=== PATIENT | female | born 1990 | race African-American/Black ===

== ENCOUNTER 2020-12-09 17:01 | Outpatient (CLI) | payer OTHER, SELFPAY ==
--- NOTE | ~2020-12-09 | US_ITS ---
EXAMINATION: US OB <=14 wk fetus w TV DATE: 12/09/2020 17:41 INDICATION: Spotting and cramping during first trimester TECHNIQUE: Real-time pelvic transabdominal and transvaginal ultrasound was performed. COMPARISON: None. FINDINGS: The uterus measures 8.7 x 3.4 x 5.3 cm. The endometrial complex measures 12 mm. No intraute rine gestational sac is identified. The right ovary measures 2.2 x 1.7 x 1.6 cm. The left ovary measu res 3.0 x 2.2 x 1.9 cm. There is normal vascular flow in the ovaries. There is no free fluid in the p stefan. IMPRESSION: 1. of unknown location. Although no intrauterine gestational sac is seen, this may be due t o early gestation. If the patient is clinically stable, recommend followup with serial beta-hCG and u ltrasound. Reviewed, dictated and finalized at location A. IMPRESSION: 1. of unknown location. Although no intrauterine gestational sac is s een, this may be due to early gestation. If the patient is clinically stable, r ecommend followup with serial beta-hCG and ultrasound.
== END 2020-12-09 17:02 | disposition home or self-care (01) ==
LOC: ANHIMG 17:04
PROVIDERS: PCP Obstetrics & Gynecology; Visit Provider Obstetrics & Gynecology
DX: O26.851 Spotting complicating pregnancy, first trimester (principal); Z3A.00 Weeks of gestation of pregnancy not specified
CPT/HCPCS: 76801; 76817

== ENCOUNTER 2021-03-31 14:49 | Outpatient (CLI) | payer OTHER, SELFPAY ==
--- NOTE | ~2021-03-31 | US_ITS ---
EXAMINATION: US OB <=14 wk fetus w TV DATE: 03/31/2021 15:22 INDICATION: Uncertain dates. TECHNIQUE: Real-time transabdominal and transvaginal pelvic ultrasound was performed. COMPARISON: None. FINDINGS: TRANSABDOMINAL ULTRASOUND: The uterus measures 9.1 x 3.4 x 4.9 cm. TRANSVAGINAL ULTRASOUND: There is an intrauterine gestational sac. A yolk sac is identified. The fet al crown rump length measures 4 mm, which correlates with an estimated gestational age of 6 weeks and 0 day(s) (+/-) 4 day(s). heart motion is identified measuring 117 beats per minute (bpm) by M- mode Doppler. The right ovary measures 3.7 x 1.4 x 1.2 cm. The left ovary measures 3.4 x 2.1 x 1.9 cm . There is no free fluid in the pelvis. IMPRESSION: 1. Single living intrauterine gestation with estimated date of delivery of 11/24/2021. Reviewed, dictated and finalized at location A. 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
== END 2021-03-31 14:50 | disposition home or self-care (01) ==
LOC: ANHIMG 14:53
PROVIDERS: PCP Family Medicine; Visit Provider Student in an Organized Health Care Education/Training Program
DX: Z34.90 Encounter for supervision of normal pregnancy, unspecified, unspecified trimester (principal); Z3A.00 Weeks of gestation of pregnancy not specified
CPT/HCPCS: 76801; 76817

== ENCOUNTER 2021-10-28 13:05 | Inpatient (IN) | payer OTHER, SELFPAY ==
[2021-10-28] VITALS (14 sets, daily range): BP systolic 83–133; BP diastolic 53–88; PULSE 74–96; TEMP 37.1; BMI 33.2
--- NOTE | ~2021-10-28 | US_ITS ---
EXAMINATION: US OB limited w BPP DATE: 10/28/2021 11:16 INDICATION: Late decelerations during third trimester TECHNIQUE: Real-time pelvic ultrasound was performed. The interpreting radiologist was not present fo r the study. COMPARISON: None. FINDINGS: There is a single living fetus in vertex presentation. The placenta is anterior. heart rate is 144 beats per minute (bpm). The amniotic fluid index is 15.4 cm which is normal (normal range: 7.7 cm to 24.9 cm). Biophysical profile performed by the technologist: breathing (30 sec sustained breathing in 30 minutes): 2 out of 2 movement (3 gross body movements in 30 minutes): 2 out of 2 tone (one episode of vpbibri-tropupuqt-pwcybda limb movement): 2 out of 2 Amniotic fluid pocket (2 cm): 2 out of 2 Total score: 8 out of 8 IMPRESSION: 1. Single living fetus in vertex presentation. 2. Biophysical profile 8 out of 8. 3. Normal amniotic fluid index. Reviewed, dictated and finalized at location B.
--- NOTE | 2021-10-28 10:30 | PC.NURSE ---
1020-Called Dr. Owusu. 1030- Dr. Owusu returned call. Informed of late deceleration, almost prolonged, noted on tracing. Orders received.
--- NOTE | 2021-10-28 11:00 | PC.NURSE ---
See OBIX for charting after 1051.
--- NOTE | 2021-10-28 11:44 | PC.NURSE ---
1130- Called Dr. Owusu. 1144- Dr. Owusu returned call. Informed of ultrasound report. Will come discuss plan of care with pt.
--- NOTE | 2021-10-28 13:05 | PC.NURSE ---
Dr. Owusu at bedside. Tracing reviewed. Discussed plan of care with pt. Orders received for induction of labor.
--- NOTE | 2021-10-28 17:03 | PC.NURSE ---
Pt moved to room 108 for induction of labor.
[2021-10-28 18:18] LABS: Basophils Absolute Auto 0.1 K/mm3 (0.0-0.1); Basophils Percent Auto 0.4 % (0.2-1.2); Eosinophils Absolute Auto 0.2 K/mm3 (0-0.3); Eosinophils Percent Auto 1.3 % (0-4.4); Hematocrit 34.4 % (37.0-47.0); Hemoglobin 11.3 g/dL (12.0-15.0); Immature Granulocyte Absolute 0.07 K/mm3 (0.00-0.031); Immature Granulocyte Percent A 0.6 % (0-0.5); Lymphocytes Absolute Auto 1.88 K/mm3 (0.9-3.2); Lymphocytes Percent Auto 16.6 % (18.3-44.2); Mean Corpuscular HGB Conc 32.8 g/dl (32-36); Mean Corpuscular Hemoglobin 25.2 pg (26-34); Mean Corpuscular Volume 76.8 fl (80-100); Mean Platelet Volume 9.6 fl (7.4-10.4); Monocytes Absolute Auto 0.7 K/mm3 (0.1-0.6); Monocytes Percent Auto 6.2 % (2.6-8.5); Neutrophils Absolute Auto 8.5 K/mm3 (1.3-6.7); Neutrophils Percent Auto 74.9 % (45.5-73.1); Platelet Count Result 216 k/mm3 (150-375); Red Blood Count 4.48 M/mm3 (4.2-5.4); Red Cell Distribution Width 14.6 % (11.5-14.5); White Blood Count 11.3 K/mm3 (4.5-10.0)
--- NOTE | 2021-10-28 18:43 | WPDANESEPP ---
Anes - Eval Pre Procedure Procedure: labor epidural Date/Time: 10/28/21 18:43 Surgeon: kobe Preop Diagnosis: pain during labor Pre Op Diagnosis: induction of labor Patient Data Age: 31 Gender: F Height: Weight: Last Vital Signs Pulse 81 10/28/21 18:30 BP 118/71 10/28/21 18:30 Allergies Allergy/AdvReac Type Severity Reaction Status Date / Time No Known Allergies Allergy Verified 10/28/21 08:32 Home Medications Medication Instructions Recorded Confirmed Type prenat.vits,reed,uoq-ffxy-pparz 1 tablet PO DAILY 03/31/21 10/28/21 History Laboratory Tests 10/28/21 10/28/21 10/28/21 17:56 17:56 17:56 WBC 11.3 K/mm3 H K/mm3 (4.5-10.0) RBC 4.48 M/mm3 M/mm3 (4.2-5.4) Hgb 11.3 g/dL L g/dL (12.0-15.0) Hct 34.4 % L % (37.0-47.0) MCV 76.8 fl L fl (80-100) MCH 25.2 pg L pg (26-34) MCHC 32.8 g/dl g/dl (32-36) RDW 14.6 % H % (11.5-14.5) Plt Count 216 k/mm3 k/mm3 (150-375) MPV 9.6 fl fl (7.4-10.4) Immature Gran % (Auto) 0.6 % H % (0-0.5) Neut % (Auto) 74.9 % H % (45.5-73.1) Lymph % (Auto) 16.6 % L % (18.3-44.2) [place] % (Auto) 6.2 % % (2.6-8.5) Eos % (Auto) 1.3 % % (0-4.4) Baso % (Auto) 0.4 % % (0.2-1.2) Lymph # (Auto) 1.88 K/mm3 K/mm3 (0.9-3.2) [place] # (Auto) 0.7 K/mm3 H K/mm3 (0.1-0.6) Eos # (Auto) 0.2 K/mm3 K/mm3 (0-0.3) Baso # (Auto) 0.1 K/mm3 K/mm3 (0.0-0.1) Abs Immat Gran (auto) 0.07 K/mm3 H K/mm3 (0.00-0.031) Absolute Neuts (auto) 8.5 K/mm3 H K/mm3 (1.3-6.7) Absolute Nucleated RBC 0.0 K/mm3 K/mm3 (0.0-0.012) Nucleated RBC % 0.0 % % (0.0-0.2) RPR Pending HIV 1&2 Ab/P24 Ag 4thGn Pending Patient hx anesthesia problems: none Family hx anesthesia problems: none Results Review: All pre-operative results and documents have been reviewed as part of the pre-operative evaluation. [facility] Past Medical History Medical History History of vaginal delivery x 1 Spontaneous miscarriage x1 Surgical History Surgical History History of surgery on wrist History of surgical removal of meniscus of knee Family History Family History Father Cerebrovascular accident Hypertension Social History Social History Smoking status: Never smoker Alcohol intake: never Substance use: never Spiritual care concerns: No Exam Day of Procedure 10/28/21 18:43
[2021-10-28] MEDS: DINOPROSTONE 10 MG VAG INSERT VAGINAL (19:04)
[2021-10-28 19:09] LABS: HIV 1/2 Ab P24 Ag Result Negative (Negative)
[2021-10-28] MEDS: BETAMETHASONE SOD PHOS/ACETATE 30 MG/5 ML VIAL 12 MG IM (19:38)
--- NOTE | 2021-10-28 19:42 | PM.IMHP ---
H&P: HPI History of Present Illness Date/Time: 10/28/21 19:42 Chief Complaint: Nonreassuring tracing. Narrative: Patient is a at 36 3/7 weeks by LMP She presented for routine OB visit today and audible deceleration heard. She was sent to L and D for monitorinf. Tracing significant for isolated decelerations, isolated late deceleration and intermittent variables. She had normal JOANN and BPP. Due to the persistance of the decelerations with extended monitoring she was recommended for medical induction of labor due to concerning tracing. She was informed of risk of prematurity and risk of continuing . Discussed risk of induction of labor to include intolerance of labor, risk of delivery. Her questions answered. She to medical induction of labor. course has been uncomplicated. Labs reviewed. GBS performed today, therefore will give GBS prophylaxis for unknown GBS status. Discussed risk of induction of labor to include intolerance of labor, risk of delivery. Her questions answered. Review of Systems Review of Systems: All systems reviewed & are unremarkable except as noted in HPI and below Constitutional: Constitutional: Reports no additional constitutional complaints and Denies headache(s) Eyes: Eyes: Denies spots in vision ENT: Reports system reviewed and no additional complaints, except as documented and Denies headache(s) Cardiovascular: Cardiovascular: Denies chest pain and Denies dyspnea Respiratory: Respiratory: Denies dyspnea Gastrointestinal: Gastrointestinal: Reports no additional gastrointestinal complaints Genitourinary: Genitourinary: Reports amenorrhea Musculoskeletal: Musculoskeletal: Reports no additional musculoskeletal complaints Integumentary/Breasts: Skin/Breast: Denies breast mass and Denies rash Neurologic: Denies headache(s) Psychiatric: Psychiatric: Reports no additional psychiatric complaints [facility] Past Medical History Medical History History of vaginal delivery x 1 Spontaneous miscarriage x1 Surgical History Surgical History History of surgery on wrist History of surgical removal of meniscus of knee Family History Family History Father Cerebrovascular accident Hypertension Social History Social History Smoking status: Never smoker Alcohol intake: never Substance use: never Spiritual care concerns: No Meds Home Medications and Allergies Home Medications Medication Instructions Recorded Confirmed Type prenat.vits,reed,yyh-cuxw-xprka 1 tablet PO DAILY 03/31/21 10/28/21 History Allergies Allergy/AdvReac Type Severity Reaction Status Date / Time No Known Allergies Allergy Verified 10/28/21 08:32 Vital Signs Vital Signs - 24 hr 10/28/21 10:51 10/28/21 18:06 10/28/21 18:15 Pulse Rate 76 77 96 Blood Pressure 112/71 118/76 Blood Pressure [Left Arm] 108/69 10/28/21 18:30 10/28/21 18:45 10/28/21 19:16 Pulse Rate 81 76 88 Blood Pressure 118/71 108/62 131/77 Blood Pressure [Left Arm] 10/28/21 19:30 Pulse Rate 74 Blood Pressure 119/66 Blood Pressure [Left Arm] Exam Const: General: no acute distress Eyes: General: appearance normal, both eyes and all related structures Resp: Effort & Inspection: normal respiratory effort Cardio: Rate: regular rate GI: Other: Gravid no fundal tenderness no right upper quadrant pain : External Female Exam: normal external appearance Other: cervix 03/21/- Skin: General skin exam: no rashes or lesions noted Neuro: Cognition (Neuro): normal cognition Extrem: General: normal to inspection Psych: Mental Status: mental status grossly normal H&P: Results Labs Labs: Short CBC
[2021-10-28] MEDS: AMPICILLIN 2 GM/NS 100 ML 2 GM/100 ML BAG IVPB (20:18)
[2021-10-28] MEDS: LACTATED RINGERS 1,000 ML 125 ML IV CONT (20:18)
[2021-10-29] VITALS (158 sets, daily range): BP systolic 73–132; BP diastolic 37–102; PULSE 56–162; RESP 12–20; TEMP 36.2–36.8; O2SAT 87–100
[2021-10-29] MEDS: AMPICILLIN 1 GM/NS 50 ML 1 GM/50 ML BAG IVPB ×3 (00:12→07:49)
[2021-10-29] MEDS: LACTATED RINGERS 1,000 ML 125 ML IV CONT (04:08)
[2021-10-29] MEDS: BETAMETHASONE SOD PHOS/ACETATE 30 MG/5 ML VIAL 12 MG IM (07:46)
[2021-10-29] MEDS: TERBUTALINE SULFATE 1 MG/ML VIAL (08:25)
[2021-10-29] MEDS: ceFAZolin 2 GM/D5W 50 ML 2 GM/50 ML BAG IVPB (09:12)
[2021-10-29] MEDS: KETOROLAC 30 MG/ML VIAL (*BKC) IV PUSH ×2 (10:19→12:41)
--- NOTE | 2021-10-29 11:43 | PM.OBPNVD ---
OB - PN: Subj Subjective Date/time seen: 10/29/21 0740 tracing reviewed. Throughout the night she had intermittent, non repetitive episodes of mild late decelerations. Cervidil removed after SROM. Forebag was present. She continued to contract. Irregular with nonrepetitive late decelerations, intermittent episodes of minimal to moderate variability. The forebag did SROM and an FSE was placed this am. Cervix 5/70/-2. Cat 2 tracing. Patient progressing in labor. Narrative: tracing reviewed OB - PN: Obj Data Labs CBC & Chem 7: 10/28/21 17:56 Labs: Laboratory Results - last 24 hr 10/28/21 10/28/21 10/28/21 17:56 17:56 17:56 WBC 11.3 H RBC 4.48 Hgb 11.3 L Hct 34.4 L MCV 76.8 L MCH 25.2 L MCHC 32.8 RDW 14.6 H Plt Count 216 MPV 9.6 Immature Gran % (Auto) 0.6 H Neut % (Auto) 74.9 H Lymph % (Auto) 16.6 L [place] % (Auto) 6.2 Eos % (Auto) 1.3 Baso % (Auto) 0.4 Lymph # (Auto) 1.88 [place] # (Auto) 0.7 H Eos # (Auto) 0.2 Baso # (Auto) 0.1 Abs Immat Gran (auto) 0.07 H Absolute Neuts (auto) 8.5 H Absolute Nucleated RBC 0.0 Nucleated RBC % 0.0 HIV 1&2 Ab/P24 Ag 4thGn Negative Blood Type O Positive Antibody Screen Negative OB - PN A/P Time Spent With Patient Time: Total time spent is greater than 50% in coordination of care (as documented) at patient's floor/unit and/or counseling patient:
--- NOTE | 2021-10-29 11:57 | P.PNOB_ITS ---
OB - PN: Subj Subjective Date/time seen: 10/29/21 0845 FHT 135, contractions increased and at approximately 0750 she started having repetitive lates. She was recommended for primary section for int olerance to labor. Discussed risk benefits of section and risk of continuing labor. Her questions were answered. She agreed to section. OB - PN: Obj Data Labs CBC & Chem 7: 10/28/21 17:56 Labs: Laboratory Results - last 24 hr 10/28/21 10/28/21 10/28/21 17:56 17:56 17:56 WBC 11.3 H RBC 4.48 Hgb 11.3 L Hct 34.4 L MCV 76.8 L MCH 25.2 L MCHC 32.8 RDW 14.6 H Plt Count 216 MPV 9.6 Immature Gran % (Auto) 0.6 H Neut % (Auto) 74.9 H Lymph % (Auto) 16.6 L [place] % (Auto) 6.2 Eos % (Auto) 1.3 Baso % (Auto) 0.4 Lymph # (Auto) 1.88 [place] # (Auto) 0.7 H Eos # (Auto) 0.2 Baso # (Auto) 0.1 Abs Immat Gran (auto) 0.07 H Absolute Neuts (auto) 8.5 H Absolute Nucleated RBC 0.0 Nucleated RBC % 0.0 HIV 1&2 Ab/P24 Ag 4thGn Negative Blood Type O Positive Antibody Screen Negative OB - PN A/P Time Spent With Patient Time: Total time spent is greater than 50% in coordination of care (as documented) at patient's floor/unit and/or counseling patient:
--- NOTE | 2021-10-29 12:00 | PM.OP ---
Procedure Note - Brief Procedure Note - Brief Date of procedure: 10/29/21 Pre-op diagnosis: intolerance to labor Post-op diagnosis: Same Procedure performed: Primary low transverse section Anesthesia: epidural Surgeon: Raji Owusu MD Estimated blood loss (mL): 760 Drains: No Packing: No Pathology: Yes (placenta and cord) Complications: No immediate complications Condition: Stable Disposition: Floor Findings: female with bandelero cord loose, normal uterus, fallopian tubes and ovaries.
[2021-10-29] MEDS: OXYTOCIN 30 UNITS/NS 500 ML 30 UNITS/500 ML BAG 125 UNITS IV CONT (12:42)
--- NOTE | 2021-10-29 12:53 | PC.NURSE ---
Report given to PERLITA Grove
--- NOTE | 2021-10-29 13:10 | PC.NURSE ---
Patient transferred to post room #289 via stretcher. Support person present. Oriented to unit, room, information board, rooming in, admission packet and security measures. Patient verbalizes understanding.
[2021-10-29] MEDS: ONDANSETRON INJ 4 MG/2 ML VIAL IV PUSH (15:13)
--- NOTE | 2021-10-29 16:17 | P.OP_ITS ---
Procedure Note - Detailed Date of Procedure 10/29/21 Pre-op Diagnosis intolerance to labor Post-op Diagnosis Same Procedure Performed Primary low transverse section Surgeon Raji Owusu MD Anesthesia Epidural Indications tracing significant for spontaneous repetitive late decelerations remote from delivery. section recommended for intolerance to labor. Findings female infant 5lb 2oz, vertex presentation with bandelero cord, apgars 5,8, weight 5lb2oz Description of Procedure After informed consent, risks and benefits of the procedure was discussed with the patient. The patient was taken to the operating room where she was placed in the dorsal lithotomy position with leftward tilt. After the prior placed epidural anesthesia was found to be adequate, she was then prepped and draped in the usual sterile fashion. A Pfannenstiel skin incision was made with a scalpel and carried through to the underlying layer of fascia. The fascia was then nicked in the midline, extending bilaterally. The fascia was dissected off the rectus muscles bluntly and sharply, superiorly and inferiorly. The rectus muscles were in the midline, and peritoneum was identified and entered bluntly. The pelvic organs were visualized. The bladder blade was then inserted. The vesicouterine peritoneum was identified and entered sharply with Metzenbaum scissors and extended bilaterally and then the bladder flap was created digitally. The low transverse uterine incision was then made with the scalpel and extended with bilateral index fingers in a crescent-shaped fashion. The amniotic sac was entered, clear fluid noted. The head was delivered and the rest of the was delivered. The cord was wrapped around the abdomen. The cord was untangled from the trunk and arm. The nose and mouth suctioned. The cord was clamped twice and cut. The infant was then handed off to the awaiting pediatric staff. The placenta was then delivered manually. The uterine cavity was sponge curetted. The uterus was then exteriorized. The uterine incision was then closed with 0 vicryl in a running locked fashion. Several figure of eight stitches were used to obtain hemostasis at the left incision. A second layer of 0 vicryl was used in an imbricating interrupted fashion for hemostasis. Hemostasis noted. The posterior cul de sac was irrigated. The uterus was then returned to the abdomen. Bilateral gutters were cleared off all clots and debris. The uterine incision was noted to be hemostatic. Interceed placed on uterine incision and vertically on front of uterus. The muscle bellies were inspected and noted to be hemostatic. The peritoneum was closed in a funning fashion with 3.0 vicryl. The subfascial layer was noted to be hemostatic, and the fascia was closed with 0 Vicryl in a running fashion. The subcutaneous layer was then closed with 3-0 Vicryl in a subcutaneous fashion. The skin was closed with 4.0 vicryl on a [place] needle. Skin dermabond applied at incision. All instruments, needle, and lap counts were correct x3. The patient was taken to the recovery room in stable condition. Estimated Blood Loss -760.0 Drains No Packing No Pathology Yes (placenta and cord) Complications No immediate complications Condition Stable Disposition Floor [facility] Billing Surgery - Charge Forward: Surgery Billing
[2021-10-29 16:51] LABS: Rapid Plasma Reagin Non-Reactive (NonReactive)
[2021-10-29] MEDS: DEXTROSE 5%/0.45% SOD CHL 1,000 ML 125 ML IV CONT (17:41)
[2021-10-30] VITALS: BP 113/58; PULSE 63; RESP 18; TEMP 36.4
[2021-10-30 03:20] VITALS: BP 98/55; PULSE 66; RESP 16; TEMP 36.6
[2021-10-30 05:49] LABS: Basophils Absolute Auto 0.1 K/mm3 (0.0-0.1); Basophils Percent Auto 0.2 % (0.2-1.2); Hematocrit 29.9 % (37.0-47.0); Hemoglobin 9.7 g/dL (12.0-15.0); Immature Granulocyte Absolute 0.19 K/mm3 (0.00-0.031); Immature Granulocyte Percent A 0.8 % (0-0.5); Lymphocytes Absolute Auto 1.16 K/mm3 (0.9-3.2); Lymphocytes Percent Auto 4.6 % (18.3-44.2); Mean Corpuscular HGB Conc 32.4 g/dl (32-36); Mean Corpuscular Hemoglobin 25.1 pg (26-34); Mean Corpuscular Volume 77.3 fl (80-100); Mean Platelet Volume 9.9 fl (7.4-10.4); Monocytes Absolute Auto 1.5 K/mm3 (0.1-0.6); Monocytes Percent Auto 5.9 % (2.6-8.5); Neutrophils Absolute Auto 22.4 K/mm3 (1.3-6.7); Neutrophils Percent Auto 88.5 % (45.5-73.1); Platelet Count Result 174 k/mm3 (150-375); Red Blood Count 3.87 M/mm3 (4.2-5.4); Red Cell Distribution Width 14.6 % (11.5-14.5); White Blood Count 25.3 K/mm3 (4.5-10.0)
--- NOTE | 2021-10-30 08:10 | PM.OBPNVD ---
OB - PN: Subj Subjective Date/time seen: 10/30/21 08:10 Interval history: She has had flatus, tolerating liquids, has not had regular diet, has ambulated in room, no leg pain. She has adequate pain control. Lochia light. No liightheadedness or dizziness. OB - PN: Obj Data Labs CBC & Chem 7: 10/30/21 05:26 Labs: Laboratory Results - last 24 hr 10/28/21 10/30/21 17:56 05:26 WBC 25.3 H RBC 3.87 L Hgb 9.7 L Hct 29.9 L MCV 77.3 L MCH 25.1 L MCHC 32.4 RDW 14.6 H Plt Count 174 MPV 9.9 Immature Gran % (Auto) 0.8 H Neut % (Auto) 88.5 H Lymph % (Auto) 4.6 L [place] % (Auto) 5.9 Eos % (Auto) 0.0 Baso % (Auto) 0.2 Lymph # (Auto) 1.16 [place] # (Auto) 1.5 H Eos # (Auto) 0.0 Baso # (Auto) 0.1 Abs Immat Gran (auto) 0.19 H Absolute Neuts (auto) 22.4 H Absolute Nucleated RBC 0.0 Nucleated RBC % 0.0 RPR Non-reactive OB - PN A/P Plan Comments: POD1 s/p primary for nonreassuring tracing. She is doing well. Routine post op care. Asymptomatic anemia. Time Spent With Patient Time: Total time spent is greater than 50% in coordination of care (as documented) at patient's floor/unit and/or counseling patient: Exam Const: General: comfortable and no acute distress Eyes: General: appearance normal, both eyes and all related structures Resp: Effort & Inspection: normal respiratory effort Auscultation: clear to auscultation bilaterally Cardio: Rate: regular rate Rhythm: regular rhythm GI: Inspection: normal to inspection Other: decreased bowel sounds, mildly distended, incision no drainage or erythema, intact : Other: fundus below umbilicus, nontender, incision intact, no drainage or erythema Extrem: General: normal to inspection and no calf tenderness (no edema) Psych: Mental Status: mental status grossly normal Affect: normal affect
[2021-10-30] MEDS: MULTIVIT/MIN/PREN/FOL AC/IRON TABLET 1 TAB PO (08:15)
[2021-10-30] MEDS: POLYSACCHARIDE IRON COMPLEX 150 MG CAPSULE PO ×2 (08:15→16:52)
[2021-10-30] MEDS: DOCUSATE SODIUM 100 MG CAPSULE PO ×2 (08:16→16:52)
[2021-10-30] MEDS: IBUPROFEN 600 MG TABLET PO ×3 (08:16→20:37)
--- NOTE | 2021-10-30 10:09 | WPDANLDNPN2 ---
Anes-Prog Note L&D-Neuraxial Date/Time: 10/30/21 10:09 Patient feedback: Patient satisfied with post-operative pain management.
--- NOTE | 2021-10-30 10:09 | WPDANLDPN2 ---
Anes-Prog Note L&D Date/Time: 10/30/21 10:09 Neuro status: Neuro function grossly intact. Vital Signs: Last Vital Signs Temp 36.6 C 10/30/21 03:20 Pulse 66 10/30/21 03:20 Resp 16 10/30/21 03:20 BP 98/55 L 10/30/21 03:20 Pulse Ox 100 10/29/21 16:30 O2 Del Method Room Air 10/29/21 12:30 Pain score (VAS): 0 I/O: Intake & Output 10/29/21 10/30/21 10/30/21 23:59 07:59 15:59 Intake Total 240 1800 Output Total 550 1600 Balance -310 200 Patient feedback: Patient satisfied with anesthetic care.
[2021-10-30] MEDS: ACETAMINOPHEN 325 MG TABLET 650 MG PO (12:01)
[2021-10-30] MEDS: LANOLIN (LANSINOH) 7.5 GM CREAM 1 APPLIC TOPICAL (12:02)
[2021-10-30 15:26] VITALS: BP 110/69; PULSE 61; RESP 18; TEMP 36.7; O2SAT 99
[2021-10-30 20:50] VITALS: BP 104/65; PULSE 86; RESP 18; TEMP 37.1; O2SAT 100
[2021-10-30 21:37] VITALS: TEMP 37.1
[2021-10-31] MEDS: ACETAMINOPHEN 325 MG TABLET 650 MG PO ×2 (03:53→18:57)
[2021-10-31 07:45] VITALS: BP 108/66; PULSE 61; RESP 18; TEMP 36.7; O2SAT 100
[2021-10-31] MEDS: IBUPROFEN 600 MG TABLET PO ×3 (08:12→22:59)
[2021-10-31] MEDS: POLYSACCHARIDE IRON COMPLEX 150 MG CAPSULE PO ×2 (08:12→17:19)
[2021-10-31] MEDS: DOCUSATE SODIUM 100 MG CAPSULE PO ×2 (08:12→17:19)
[2021-10-31] MEDS: MULTIVIT/MIN/PREN/FOL AC/IRON TABLET 1 TAB PO (08:12)
--- NOTE | 2021-10-31 11:05 | PM.OBPNVD ---
OB - PN: Subj Subjective Date/time seen: 10/31/21 11:05 Interval history: She has had flatus, tolerating liquids, has not had regular diet, has ambulated in room, no leg pain. She has adequate pain control. Lochia light. No BM. No liightheadedness or dizziness. pumping and , baby will stay until tomorrow OB - PN: Obj Data Labs CBC & Chem 7: 10/30/21 05:26 OB - PN A/P Assessment and Plan (1) Delivery by section: Status: Acute Assessment and Plan: She is doing well. routine post care. Anticipate discharge tomorrow. Plan Comments: POD1 Time Spent With Patient Time: Total time spent is greater than 50% in coordination of care (as documented) at patient's floor/unit and/or counseling patient: Exam Const: General: comfortable and no acute distress Resp: Effort & Inspection: normal respiratory effort Auscultation: clear to auscultation bilaterally Cardio: Rate: regular rate GI: Other: incision clean dry intact, fundus below umbilicus nontender Extrem: General: normal to inspection (nontender, trace edema bilat) Psych: Mental Status: mental status grossly normal Affect: normal affect
[2021-10-31 19:00] VITALS: BP 112/75; PULSE 81; RESP 18; TEMP 36.5
[2021-11-01] MEDS: ACETAMINOPHEN 325 MG TABLET 650 MG PO ×2 (01:30→08:16)
[2021-11-01] MEDS: IBUPROFEN 600 MG TABLET PO (05:20)
[2021-11-01] MEDS: MULTIVIT/MIN/PREN/FOL AC/IRON TABLET 1 TAB PO (08:15)
[2021-11-01] MEDS: POLYSACCHARIDE IRON COMPLEX 150 MG CAPSULE PO (08:15)
[2021-11-01] MEDS: DOCUSATE SODIUM 100 MG CAPSULE PO (08:15)
[2021-11-01 08:40] VITALS: BP 117/63; PULSE 68; RESP 16; TEMP 36.6; O2SAT 100
[2021-11-03 07:58] VITALS: BP 123/77; PULSE 76; RESP 16; TEMP 37.5; O2SAT 100
--- NOTE | 2021-11-29 10:10 | PM.OBDSVD ---
DS: Admitting Diagnosis Discharge Date 11/01/21 Admitting Diagnosis nonreassuring tracing DS: Discharge Diagnosis Discharge Diagnosis Plan intolerance to labor OB - DS: Summary Hospital Course Hospital Course: patient was admitted due to concerning tracing and she was recommended for delivery. She underwent medical induction of labor. When she started having regular contractions been the tracing was consistent with nonreassuring and intolerance to labor and she was recommended for primary . She underwent an uncomplicated primary . Postop day 1 she was doing well. Had adequate pain control. Postop day 2 she was ambulating more she was tolerating regular diet. She was discharged home on postop day 3. She had adequate pain control had positive flatus. Baby was doing well. OB Procedures : NST and Ultrasound OB Procedures Intrapartum: OB Procedures: : None Peripartum Data Delivery Method: Section Procedures: Procedures Operation Date: 10/29/21 09:00 Actual Procedure Side Surgeon p Section Not Applicable Raji Owusu MD complications: none Status at Discharge Functional status at discharge: independent ambulation Time Spent with Patient Time attestation: Total time spent providing and/or coordinating discharge services: Exam Const: General: cooperative Orientation/consciousness: oriented to person, oriented to place and oriented to time HENMT: Face/Nose/Sinus: Normal external nose present Eyes: General: appearance normal, both eyes and all related structures Resp: Effort & Inspection: normal respiratory effort GI: Inspection: normal to inspection Skin: General skin exam: normal color Neuro: General: oriented to person, oriented to place and oriented to time Extrem: General: normal to inspection and no calf tenderness Psych: Appearance: grossly normal Mental Status: mental status grossly normal DS: Data Data Completed and Pending Completed studies during hospitalization: Pending at discharge 10/29/21 09:36 Surgical [PTH] Routine Discharge Plan Discharge Attending physician on discharge: Raji Owusu Consulting providers: Mary Jarvis ; Toni Hdz Discharging Clinician: Raji Owusu Anticipated Discharge Date/Time: 11/01/21 09:46 Patient Disposition: Home, Self-Care Activity: may shower, no straining, may drive after 2 weeks and pelvic rest Diet: regular Discharge Instructions: Education: Mom and Baby Guide Given to: Mother Follow-Up: Call your delivering provider's office for an appointment to be seen in: 1 Week Mom and baby should come to the [facility] for the follow-up appointment. Appointment Date/Time: November 03, 2021 at 8:00 am What to expect at your follow-up visit: Blood Pressure Check Physical Assessment Call [phone] if you are unable to keep your appointment time. BREAST CARE: * Wear a snug supportive bra. * For engorgement discomfort: Breast Feeding: * Apply warm moist washcloths * Express milk as needed to relieve engorgement * Wear loose clothing Bottle Feeding: * May apply ice packs * For sore nipples: * Identify correct latch-on * Apply warm moist washcloths before and after nursing * Air dry nipples after nursing * May apply Lansinoh cream to nipples ABDOMINAL INCISION: * Allow incision to air dry * Do NOT use lotions for powders on your incision * When showering, allow soap and water to run over the incision, but do not wash incision PERINEAL CARE: * Until bleeding stops, use your giuila bottle after urinating * Change your pad frequently throughout the day * You may take sitz baths several times a day (fill your bathtub with warm water and soak for 20 minutes.) Do NOT bathe in the water * No tub b
== END 2021-11-01 15:11 | disposition home or self-care (01) | DRG 788 ==
LOC: ANHLDR 10-29 12:02 → ANHOB2 10-29 13:20
PROVIDERS: Admitting Provider Obstetrics & Gynecology; PCP Family Medicine; Visit Provider Obstetrics & Gynecology
PROC: 10D00Z1 Extraction of Products of Conception, Low, Open Approach (ICD-10-PCS; CPT 59514; principal; 2021-10-29 09:00)
DX: O36.8330 Maternal care for abnormalities of the fetal heart rate or rhythm, third trimester, not applicable or unspecified (principal); Z37.0 Single live birth; Z3A.36 36 weeks gestation of pregnancy
CPT/HCPCS: 36415; 59025; 76815; 76819; 85025; 86592; 86703; 86850; 86900; 86901; 88307; A9270; G0432; J0131; J0290; J0690; J0702; J1100; J1885; J2210; J2274; J2370; J2405; J2590; J2795; J3105; J7120

== ENCOUNTER 2023-02-01 14:22 | Outpatient (CLI) | payer OTHER, SELFPAY ==
--- NOTE | ~2023-02-01 | US_ITS ---
EXAMINATION: US OB <= 14 weeks fetus DATE: 02/01/2023 15:53 INDICATION: with inconclusive viability. TECHNIQUE: Real-time transabdominal pelvic ultrasound was performed. COMPARISON: None. FINDINGS: The uterus measures 11.1 x 4.3 x 6.6 cm. There is a cyst in the endometrial complex with mean diamete r of 13 mm. If this finding is a gestational sac, it correlates with an estimated gestational age of 6 weeks and 1 day. No yolk sac or pole is identified. The right ovary measures 3.7 x 2.1 x 2.7 cm. The left ovary measures 2.9 x 2 .5 x 1.0 cm. There is no free fluid in the pelvis. IMPRESSION: 1. Cyst in the endometrial complex with mean diameter of 13 mm, which may be a gestational sac with estimated gestational age of 6 weeks and 1 day. Lack of a yolk sac or pole would be nonreassuri ng. Spontaneous and ectopic are not excluded. Serial beta hCGs are recommended. Reviewed, dictated and finalized at location A. STAND VENDOR IMPRESSION: 1. Cyst in the endometrial complex with mean diameter of 13 mm, which may be a gestational sac with estimated gestational age of 6 weeks and 1 day. Lack of a yolk sac or pole would be nonreassuring. Spontaneous and ectopi c are not excluded. Serial beta hCGs are recommended.
== END 2023-02-01 14:23 | disposition home or self-care (01) ==
PROVIDERS: PCP Family Medicine; Visit Provider Obstetrics & Gynecology
DX: O28.8 Other abnormal findings on antenatal screening of mother (principal)
CPT/HCPCS: 36415; 76801; 84702

== ENCOUNTER 2023-02-01 16:21 | Outpatient (CLI) | payer OTHER, SELFPAY | END 2023-02-01 16:22 | disposition home or self-care (01) | LOC: ANHLAB 16:22 | PROVIDERS: PCP Family Medicine; Visit Provider Obstetrics & Gynecology | DX: O26.851 Spotting complicating pregnancy, first trimester (principal) | CPT/HCPCS: 36415; 84702 ==

== ENCOUNTER → 2023-02-08 11:12 | Outpatient (CLI) | payer OTHER, SELFPAY ==
--- NOTE | ~2023-02-08 | US_ITS ---
EXAMINATION: US OB <=14 wk fetus w TV DATE: 02/08/2023 11:51 INDICATION: First trimester dating and viability assessment TECHNIQUE: Real-time pelvic transabdominal and transvaginal ultrasound was performed. COMPARISON: 02/01/2023 FINDINGS: The uterus measures 11.5 x 5.5 x 6.2 cm. There is an intrauterine gestational sac. There ap pears to be debris in the gestational sac. No yolk sac or pole are identified. The mean sac tiffanie meter measures 21 mm which corresponds to an estimated gestational age of 6 weeks, 4 days. The right ovary measures 3.7 x 2.3 x 4.0 cm and contains a 2.4 x 2.0 cm cystic area. The left ovary m easures 2.7 x 1.1 x 3.3 cm. There is normal vascular flow in the ovaries. There is no free fluid in t he pelvis. IMPRESSION: 1. Findings suspicious for but not diagnostic of failure. Interval development of a cystic area in the right ovary is nonspecific and could reflect corpus luteum or possible ectopic . Continued beta hCGs and ultrasound follow-up are recommended. Reviewed, dictated and finalized at location B. MANAGERS IMPRESSION: 1. Findings suspicious for but not diagnostic of failure. Interval de velopment of a cystic area in the right ovary is nonspecific and could reflect corpus luteum or possible ectopic . Continued beta hCGs and ultrasound follow-up are recommended.
== END ==
PROVIDERS: PCP Obstetrics & Gynecology; Visit Provider Obstetrics & Gynecology
DX: O28.3 Abnormal ultrasonic finding on antenatal screening of mother (principal); Z3A.00 Weeks of gestation of pregnancy not specified
CPT/HCPCS: 76801; 76817

== ENCOUNTER 2023-06-12 10:19 | Outpatient (CLI) | payer OTHER, SELFPAY | END 2023-06-12 10:20 | disposition home or self-care (01) | LOC: ANHLAB 10:21 | PROVIDERS: PCP Obstetrics & Gynecology; Visit Provider Nurse Practitioner Family | DX: O09.299 Supervision of pregnancy with other poor reproductive or obstetric history, unspecified trimester (principal); Z3A.00 Weeks of gestation of pregnancy not specified | CPT/HCPCS: 36415; 84702 ==

== ENCOUNTER 2023-06-14 08:23 | Outpatient (CLI) | payer OTHER, SELFPAY ==
--- NOTE | ~2023-06-14 | US_ITS ---
Pelvic ultrasound. Clinical History: First trimester , inconclusive viability Technique: Realtime transabdominal and transvaginal scanning of the pelvis was performed. Color flow Doppler and Doppler spectral analysis were performed. Findings: The uterus is anteverted. Intrauterine gestational sac is present, with estimated gestation al age of 6 weeks 1 day based on average sac diameter of 1.3 cm.. Probable yolk sac present without i dentifiable pole at this time. The right ovary measures 3.1 x 3.6 x 3.6 cm. No significant right ovarian or adnexal mass is seen. The left ovary measures 1.3 x 1.7 x 2.2 cm. No significant left ovarian or adnexal mass is seen. There is a small amount of free fluid in the cul de sac. Impression: Intrauterine gestational sac with estimated gestational age of 6 weeks 1 day based on average sac 1.3 cm. Yolk sac present without visible pole. Findings are somewhat equivocal. This could reflect an early normal , versus a blighted ovum/missed . Correlate clinically. Continued f ollow-up with serial beta hCG is recommended. Consider short-term follow-up ultrasound in 5-7 days to reassess, as indicated. Reviewed, dictated and finalized at location . Impression: Intrauterine gestational sac with estimated gestational age of 6 weeks 1 day ba sed on average sac 1.3 cm. Yolk sac present without visible pole. Finding s are somewhat equivocal. This could reflect an early normal , versus a blighted ovum/missed . Correlate clinically. Continued follow-up with serial beta hCG is recommended. Consider short-term follow-up ultrasound in 5- 7 days to reassess, as indicated.
== END 2023-06-14 08:24 ==
PROVIDERS: PCP Obstetrics & Gynecology; Visit Provider Nurse Practitioner Family
DX: O36.80X0 Pregnancy with inconclusive fetal viability, not applicable or unspecified (principal); Z3A.01 Less than 8 weeks gestation of pregnancy
CPT/HCPCS: 76801; 76817

== ENCOUNTER 2023-06-14 09:41 | Outpatient (CLI) | payer OTHER, SELFPAY | END 2023-06-14 09:42 | disposition home or self-care (01) | LOC: ANHLAB 09:44 | PROVIDERS: PCP Obstetrics & Gynecology; Visit Provider Nurse Practitioner Family | DX: O09.299 Supervision of pregnancy with other poor reproductive or obstetric history, unspecified trimester (principal); Z3A.00 Weeks of gestation of pregnancy not specified | CPT/HCPCS: 36415; 84702 ==

== ENCOUNTER 2023-06-21 08:45 | Outpatient (CLI) | payer OTHER, SELFPAY ==
--- NOTE | ~2023-06-21 | US_ITS ---
Pelvic ultrasound. Clinical History: First trimester , inconclusive viability Technique: Realtime transabdominal and transvaginal scanning of the pelvis was performed. Color flow Doppler and Doppler spectral analysis were performed. Findings: The uterus is anteverted, and contains an intrauterine gestation. [place]-rump length of 6 mm corresponds to an estimated gestational age of 6 weeks 3 days. heart rate is 124 bpm. Yolk sac also present. The right ovary measures 4.6 x 3.0 x 3.4 cm. Simple right ovarian cyst noted, measuring 2.5 cm in tiffanie meter. The left ovary measures 3.2 x 3.4 x 1.6 cm. No significant left ovarian or adnexal mass is seen. There is no evidence of free fluid in the cul de sac. Impression: Live intrauterine gestation, with estimated gestational age of 6 weeks 3 days. heart rate is 12 4 bpm. Reviewed, dictated and finalized at [facility]. Impression: Live intrauterine gestation, with estimated gestational age of 6 weeks 3 days. heart rate is 124 bpm.
== END 2023-06-21 08:46 ==
LOC: MICIMG 08:48
PROVIDERS: PCP Obstetrics & Gynecology; Visit Provider Obstetrics & Gynecology
DX: O36.80X0 Pregnancy with inconclusive fetal viability, not applicable or unspecified (principal); Z3A.01 Less than 8 weeks gestation of pregnancy
CPT/HCPCS: 76801; 76817

== ENCOUNTER 2023-07-24 09:55 | Outpatient (CLI) | payer OTHER, SELFPAY ==
--- NOTE | ~2023-07-24 | US_ITS ---
EXAMINATION: US OB <= 14 weeks fetus DATE: 07/24/2023 11:02 INDICATION: with inclusive viability. TECHNIQUE: Real-time transabdominal pelvic ultrasound was performed. COMPARISON: Ultrasound 06/21/2023 FINDINGS: The uterus measures 16.3 x 6.2 x 9.8 cm. There is an intrauterine gestational sac. The crown ru mp length measures 4.9 cm, which correlates with an estimated gestational age of 11 weeks and 5 day(s ) (+/-) 1 week(s) and 0 day(s). heart motion is identified measuring 167 beats per minute (bpm) by M-mode Doppler. There is a subchorionic hematoma measuring 4.3 x 1.0 x 2.2 cm The right ovary jesús sures 3.5 x 2.8 x 3.0 cm. The left ovary measures 1.7 x 1.3 x 0.9 cm. There is no free fluid in the p stefan. IMPRESSION: 1. Single living intrauterine gestation with estimated date of delivery of 02/09/2024 based on the u ltrasound from 06/21/2023. 2. Small subchorionic hematoma. Reviewed, dictated and finalized at location A. IMPRESSION: 1. Single living intrauterine gestation with estimated date of delivery of based on the ultrasound from 06/21/2023. 2. Small subchorionic hematoma.
== END 2023-07-24 09:56 | disposition home or self-care (01) ==
LOC: ANHIMG 09:56
PROVIDERS: PCP Obstetrics & Gynecology; Visit Provider Obstetrics & Gynecology
DX: O36.80X0 Pregnancy with inconclusive fetal viability, not applicable or unspecified (principal); O20.8 Other hemorrhage in early pregnancy
CPT/HCPCS: 76801

== ENCOUNTER 2023-08-17 08:56 | Outpatient (CLI) | payer OTHER, SELFPAY ==
[2023-08-17 11:24] LABS: Appearance Urine Clear (Clear); Bacteria Urine 1+ /hpf; Bilirubin Urine Negative (Negative); Blood Urine Negative (Negative); Color Urine Yellow (Yellow); Glucose Urine UA Negative (Negative); Ketones Urine Negative (Negative); Leukocyte Esterase Ur 1+ LEU/UL (Negative); Need Manual Microscopic Reviewed; Nitrate Urine Negative (Negative); Non Pathogenic Casts 0-2; Protein Urine Negative (Negative); RBC Urine 0-2 /hpf (0-2); Specific Grav Ur 1.011 (1.001-1.035); Squamous Epithelial Cell Urine Moderate /hpf (Few); WBC Urine 0-5 /hpf (0-3)
[2023-08-17 11:26] LABS: Add Urine Microscopic? YES
[2023-08-17 14:38] LABS: Rapid Plasma Reagin Non-Reactive (NonReactive)
[2023-08-18 21:43] LABS: Hematocrit 35.2 % (35.0-45.0); MCH 24.9 pg (27.0-33.0); MCV 79.8 fL (80.0-100.0); RDW 14.5 % (11.0-15.0); Red Blood Cell Count 4.41 Million/uL (3.80-5.10)
== END 2023-08-17 08:57 | disposition home or self-care (01) ==
PROVIDERS: PCP Obstetrics & Gynecology; Visit Provider Obstetrics & Gynecology
DX: Z34.90 Encounter for supervision of normal pregnancy, unspecified, unspecified trimester (principal); Z3A.00 Weeks of gestation of pregnancy not specified
CPT/HCPCS: 36415; 81001; 83021; 86592; 86850; 86900; 86901

== ENCOUNTER 2023-12-19 15:49 | Outpatient (RCR) | payer OTHER, SELFPAY ==
--- NOTE | ~2023-12-19 | US_ITS ---
EXAMINATION: US OB limited DATE: 12/19/2023 17:16 INDICATION: Lower than normal heart tones. Assess amniotic fluid index during third trimester p regnancy. TECHNIQUE: Real-time ultrasound of the pelvis was performed. The interpreting radiologist was not pre sent for the study. COMPARISON: 07/24/2023 FINDINGS: There is a single living fetus in vertex presentation. The placenta is fundal. heart rate is 1 35 beats per minute (bpm). The amniotic fluid index is 13.1 cm, which is normal (5th%-95%: 8.6-24.2 c m at 32 weeks estimated gestational age). IMPRESSION: 1. Single living fetus in vertex presentation with heart rate of 135 bpm. 2. Normal amniotic fluid index of 13.1 cm. Reviewed, dictated and finalized at location A.
[2023-12-19 17:16] VITALS: BP 105/67; PULSE 73
== END 2024-03-18 23:59 | disposition home or self-care (01) ==
LOC: ANHOBOP 15:49
PROVIDERS: PCP Family Medicine; Visit Provider Obstetrics & Gynecology
DX: O36.8330 Maternal care for abnormalities of the fetal heart rate or rhythm, third trimester, not applicable or unspecified (principal); Z3A.32 32 weeks gestation of pregnancy
CPT/HCPCS: 59025; 76815

== ENCOUNTER 2023-12-29 19:21 | Observation (INO) | payer OTHER, SELFPAY ==
--- NOTE | 2023-12-29 19:21 | PC.NURSE ---
Pt arrives to unit with contractions every ten minutes this evening and three minutes en route.
--- NOTE | 2023-12-29 21:00 | PC.NURSE ---
Called Dr. Bailey, update on pt, contractions, blood pressure, and tracing. Orders received to discharge pt with instructions to increase periods of rest, keep next scheduled appointment, and when to return to the unit.
[2023-12-29 21:04] VITALS: TEMP 36.9; BMI 32.3
--- NOTE | 2023-12-29 21:41 | PC.NURSE ---
Pt discharged with instructions to increase periods of rest, keep next scheduled appointment, and when to return to the unit, pt verbalizes understanding.
--- NOTE | 2023-12-30 00:06 | PM.OBTRLD ---
OB - Triage/Final Diagnosis Visit Information Comments/Additional reasons for admission: I have assessed the risk for this patient, Nohelia Murdock, and determined that she would benefit from observation care. Final Diagnosis (1) Pelvic cramping: Code(s): R10.2 - Pelvic and perineal pain Status: Acute
== END 2023-12-29 21:41 | disposition home or self-care (01) ==
PROVIDERS: Admitting Provider Obstetrics & Gynecology; PCP Family Medicine; Visit Provider Obstetrics & Gynecology
DX: O26.893 Other specified pregnancy related conditions, third trimester (principal); R10.2 Pelvic and perineal pain; Z3A.34 34 weeks gestation of pregnancy
CPT/HCPCS: G0378; G0379

== ENCOUNTER 2024-01-31 15:45 | Outpatient (CLI) | payer OTHER, SELFPAY ==
[2024-01-31 16:48] VITALS: BP 110/61; PULSE 78
--- NOTE | 2024-01-31 17:16 | PC.NURSE ---
Dr. Owusu notified that patient was here for possible ROM. SVE exam reported. ROM plus negative. . EDC stated and no complications for reported by patient for this . Reactive NST was noted and ROM plus test was negative. OK to discharge per Dr. Owusu.
== END 2024-01-31 15:46 | disposition home or self-care (01) ==
PROVIDERS: PCP Family Medicine; Visit Provider Obstetrics & Gynecology
DX: O42.90 Premature rupture of membranes, unspecified as to length of time between rupture and onset of labor, unspecified weeks of gestation (principal); Z3A.00 Weeks of gestation of pregnancy not specified
CPT/HCPCS: 59025; 84112

== ENCOUNTER 2024-02-05 22:48 | Inpatient (IN) | payer OTHER, SELFPAY ==
[2024-02-05] VITALS (7 sets, daily range): BP systolic 125–134; BP diastolic 83–85; PULSE 66–77; TEMP 36.8; O2SAT 100; BMI 33.8
[2024-02-05] MEDS: LACTATED RINGERS 1,000 ML 125 ML IV CONT (23:27)
[2024-02-05 23:31] LABS: Basophils Absolute Auto 0.1 K/mm3 (0.0-0.1); Basophils Percent Auto 0.5 % (0.2-1.2); Eosinophils Absolute Auto 0.2 K/mm3 (0-0.3); Eosinophils Percent Auto 1.8 % (0-4.4); Hematocrit 35.2 % (37.0-47.0); Hemoglobin 11.7 g/dL (12.0-15.0); Immature Granulocyte Absolute 0.07 K/mm3 (0.00-0.031); Immature Granulocyte Percent A 0.5 % (0-0.5); Lymphocytes Absolute Auto 2.67 K/mm3 (0.9-3.2); Lymphocytes Percent Auto 20.4 % (18.3-44.2); Mean Corpuscular HGB Conc 33.2 g/dl (32-36); Mean Corpuscular Hemoglobin 24.6 pg (26-34); Mean Corpuscular Volume 73.9 fl (80-100); Mean Platelet Volume 10.1 fl (7.4-10.4); Monocytes Percent Auto 7.4 % (2.6-8.5); Neutrophils Absolute Auto 9.1 K/mm3 (1.3-6.7); Neutrophils Percent Auto 69.4 % (45.5-73.1); Platelet Count Result 235 k/mm3 (150-375); Red Blood Count 4.76 M/mm3 (4.2-5.4); Red Cell Distribution Width 14.5 % (11.5-14.5); White Blood Count 13.1 K/mm3 (4.5-10.0)
--- NOTE | 2024-02-05 23:31 | LDADM ---
This patient, Nohelia Murdock, was admitted to Labor/Delivery/Recovery 102 on 02/05/24 at 22:48. Plans for labor, pain management and were discussed with patient. Patient/family oriented to hospital policies and general routines including ID bracelet, bed and alarms, visiting hours, pain management, procedures, bathroom and other care routines, personal items, smoking policy, room service/diet and guest tray routines, security routines, and visiting hours. Patient/Family are encouraged to report perceived risks to care and to ask questions if they do not understand what they are told or what they should do. See OBIX for further documentation.
[2024-02-06] VITALS (101 sets, daily range): BP systolic 101–143; BP diastolic 43–119; PULSE 33–233; RESP 16–18; TEMP 36.6–36.9; O2SAT 80–100
--- NOTE | 2024-02-06 00:04 | WPDANESEPP ---
Anes - Eval Pre Procedure Procedure: Labor epidural Date/Time: 02/06/24 00:04 Surgeon: Umer Preop Diagnosis: Abdominal pain with contractions Pre Op Diagnosis: Contractions Patient Data Age: 33 Gender: F Height: 1.6 m Weight: 86.63 kg Last Vital Signs Pulse 66 02/05/24 23:45 BP 130/85 02/05/24 23:45 Pulse Ox 100 02/06/24 00:00 O2 Del Method Room Air 02/05/24 23:31 Allergies Allergy/AdvReac Type Severity Reaction Status Date / Time No Known Allergies Allergy Verified 02/01/24 09:44 Home Medications ?Medication ?Instructions ?Recorded ?Confirmed ?Type vitamin#30 30 mg iron-10 1 cap PO DAILY 06/07/23 02/05/24 History mg iron-folic acid 1 mg-omg3 capsule RSV vac, preF A and preF B(PF) 120 0.5 ml IM ONCE #1 ea 01/15/24 01/16/24 Rx mcg/0.5 mL IM solution (Abrysvo (PF)) Laboratory Tests 02/05/24 23:24 WBC 13.1 H K/mm3 (4.5-10.0) RBC 4.76 M/mm3 (4.2-5.4) Hgb 11.7 L g/dL (12.0-15.0) Hct 35.2 L % (37.0-47.0) MCV 73.9 L fl (80-100) MCH 24.6 L pg (26-34) MCHC 33.2 g/dl (32-36) RDW 14.5 % (11.5-14.5) Plt Count 235 k/mm3 (150-375) MPV 10.1 fl (7.4-10.4) Immature Gran % (Auto) 0.5 % (0-0.5) Neut % (Auto) 69.4 % (45.5-73.1) Lymph % (Auto) 20.4 % (18.3-44.2) [place] % (Auto) 7.4 % (2.6-8.5) Eos % (Auto) 1.8 % (0-4.4) Baso % (Auto) 0.5 % (0.2-1.2) Lymph # (Auto) 2.67 K/mm3 (0.9-3.2) [place] # (Auto) 1.0 H K/mm3 (0.1-0.6) Eos # (Auto) 0.2 K/mm3 (0-0.3) Baso # (Auto) 0.1 K/mm3 (0.0-0.1) Abs Immat Gran (auto) 0.07 H K/mm3 (0.00-0.031) Absolute Neuts (auto) 9.1 H K/mm3 (1.3-6.7) Absolute Nucleated RBC 0.000 K/mm3 (0.0-0.012) Nucleated RBC % 0.0 % (0.0-0.2) RPR Pending HIV 1&2 Ab/P24 Ag 4thGn Pending : gestational age HCG: positive Patient hx anesthesia problems: none Family hx anesthesia problems: none Results Review: All pre-operative results and documents have been reviewed as part of the pre-operative evaluation. PMFSH Past Medical History Medical History Obesity and not yet delivered Spontaneous miscarriage x2 History of vaginal delivery x 1 Surgical History Surgical History History of section History of surgical removal of meniscus of knee History of surgery on wrist Family History Family History Father Cerebrovascular accident Hypertension Social History Social History Smoking status: Never smoker Alcohol intake: never Substance use: never Other substance usage details: Marijuana use a long time ago. Do You Feel Safe in your Home?: Yes Lack of Transportation: No Lack of Food: Never True Current Housing: I Have Housing Concerned About Future Housing: No Difficulty Paying Gas/Electric Bills: No Difficulty Paying for Meds: No Currently Unemployed: No Education: Master's Degree or Higher Difficulty w/ Childcare or Family Care: No Spiritual care concerns: No Exam Day of Procedure 02/06/24 00:04 Patient weight: overweight Heart: regular rate and rhythm Lungs: clear to auscultation Airway: Mallampati scale class II
[2024-02-06 00:22] LABS: HIV 1/2 Ab P24 Ag Result Negative (Negative)
[2024-02-06] MEDS: HYDROCORTISONE 1% 30 GM CREAM 1 APPLIC TOPICAL (00:30)
[2024-02-06] MEDS: LACTATED RINGERS 1,000 ML 125 ML IV CONT (00:36)
[2024-02-06 01:14] LABS: Rapid Plasma Reagin Non-Reactive (NonReactive)
[2024-02-06] MEDS: OXYTOCIN 30 UNITS/NS 500 ML 30 UNITS/500 ML BAG 125 UNITS IV CONT (03:08)
--- NOTE | 2024-02-06 05:23 | OBPPTRN ---
Patient transferred to post room # via ( ). Support person present. Oriented to unit, room, information board, rooming in, admission packet and security measures. Patient verbalizes understanding.
--- NOTE | 2024-02-06 05:23 | OBPPTRN ---
Patient transferred to post room #283 via wheelchair. Support person present. Oriented to unit, room, information board, rooming in, admission packet and security measures. Patient verbalizes understanding.
[2024-02-06] MEDS: ACETAMINOPHEN 325 MG TABLET 650 MG PO ×2 (07:34→13:16)
[2024-02-06] MEDS: MULTIVIT/MIN/PREN/FOL AC/IRON TABLET 1 TAB PO (07:34)
[2024-02-06] MEDS: DOCUSATE SODIUM 100 MG CAPSULE PO ×2 (07:35→16:27)
--- NOTE | 2024-02-06 07:42 | PM.IMHP ---
H&P: HPI History of Present Illness Date/Time: 02/06/24 07:42 Chief Complaint: Contractions Narrative: patient is a 33-year-old at 39 weeks with an EDC of 02/08/2024 by last period. she presented with complaints of contractions that started the evening of 16. On Labor and delivery she was 4 to 5 cm. course significant for prior section for distress. She has been counseled regarding risks benefits of trial of labor versus repeat section and has opted to undergo trial of labor. The was her 2nd delivery prior to that she had at vaginal delivery. GBS negative. Review of Systems Review of Systems: All systems reviewed & are unremarkable except as noted in HPI and below Constitutional: Constitutional: Reports no additional constitutional complaints and Denies headache(s) Eyes: Eyes: Denies spots in vision ENT: Reports system reviewed and no additional complaints, except as documented and Denies headache(s) Cardiovascular: Cardiovascular: Denies chest pain and Denies dyspnea Respiratory: Respiratory: Denies dyspnea Gastrointestinal: Gastrointestinal: Reports no additional gastrointestinal complaints Genitourinary: Genitourinary: Reports amenorrhea Musculoskeletal: Musculoskeletal: Reports no additional musculoskeletal complaints Integumentary/Breasts: Skin/Breast: Denies breast mass and Denies rash Neurologic: Denies headache(s) Psychiatric: Psychiatric: Reports no additional psychiatric complaints PMFSH Past Medical History Medical History Obesity and not yet delivered Spontaneous miscarriage x2 History of vaginal delivery x 1 Surgical History Surgical History History of section History of surgical removal of meniscus of knee History of surgery on wrist Family History Family History Father Cerebrovascular accident Hypertension Social History Social History Smoking status: Never smoker Alcohol intake: never Substance use: never Other substance usage details: Marijuana use a long time ago. Do You Feel Safe in your Home?: Yes Lack of Transportation: No Lack of Food: Never True Current Housing: I Have Housing Concerned About Future Housing: No Difficulty Paying Gas/Electric Bills: No Difficulty Paying for Meds: No Currently Unemployed: No Education: Master's Degree or Higher Difficulty w/ Childcare or Family Care: No Spiritual care concerns: No Meds Home Medications and Allergies Home Medications ?Medication ?Instructions ?Recorded ?Confirmed ?Type vitamin#30 30 mg iron-10 1 cap PO DAILY 06/07/23 02/05/24 History mg iron-folic acid 1 mg-omg3 capsule RSV vac, preF A and preF B(PF) 120 0.5 ml IM ONCE #1 ea 01/15/24 01/16/24 Rx mcg/0.5 mL IM solution (Abrysvo (PF)) Allergies Allergy/AdvReac Type Severity Reaction Status Date / Time No Known Allergies Allergy Verified 02/01/24 09:44 Vital Signs Vital Signs - 24 hr 02/05/24 23:23 02/05/24 23:27 02/05/24 23:30 Temperature 98.3 F Pulse Rate 74 Respiratory Rate Blood Pressure 125/84 134/83 Pulse Oximetry Oxygen Delivery 02/05/24 23:31 02/05/24 23:45 02/05/24 23:47 Temperature Pulse Rate 66 Respiratory Rate Blood Pressure 130/85 Pulse Oximetry 100 Oxygen Delivery Room Air 02/05/24 23:52 02/05/24 23:57 02/06/24 00:00 Temperature Pulse Rate Respiratory Rate Blood Pressure Pulse Oximetry 100 100 100 Oxygen Delivery 02/06/24 00:03 02/06/24 00:04 02/06/24 00:09 Temperature Pulse Rate 82 Respiratory Rate Blood Pressure 133/93 H Pulse Oximetry 80 L 100 100 Oxygen Delivery 02/06/24 00:11 02/06/24 00:13 02/06/24 00:14 Temperature Pulse Rate 86 116 H Respiratory Rate Blood Pressure 143/77 H 135/66 Pulse Oximetry 100 Oxygen Delivery 02/06/24 00:16 02/06/24 00:18 02/06/24 00:19 Temperature Pulse Rate 90 79 Respiratory Rate Blood Pressure 141/71 H 138/68 Pulse Oximetry 97 Oxygen Delivery 02/06/24 00:21 02/06/24 00:23 02/06/24 00:24 Temperature Pulse Rate 132 H 81 Respiratory Rate Blood Pressure 117/79 138/82 Pulse Oximetry 99 Oxygen Delivery 02/06/24 00:26 02/06/24 00:28 02/06/24 00:29 Temperature Pulse Rate 73 78 Respiratory Rate Blood Pressure 138/119 H 133/89 Pulse Oximetry 97 Oxygen Delivery 02/06/24 00:31 02/06/24 00:33 02/06/24 00:34 Temperature Pulse Rate 78 74 Respiratory Rate Blood Pressure 133/81 124/60 Pulse Oximetry 97 Oxygen Delivery 02/06/24 00:36 02/06/24 00:38 02/06/24 00:39 Temperature Pulse Rate 110 H 79 Respiratory Rate Blood Pressure 104/43 L 122/48 L Pulse Oximetry 97 Oxygen Delivery 02/06/24 00:41 02/06/24 00:43 02/06/24 00:44 Temperature Pulse Rate 73 71 Respiratory Rate Blood Pressure 102/53 L 122/60 Pulse Oximetry 96 Oxygen Delivery 02/06/24 00:46 02/06/24 00:48 02/06/24 00:49 Temperature Pulse Rate 72 75 Respiratory Rate Blood Pressure 127/64 132/68 Pulse Oximetry 97 Oxygen Delivery 02/06/24 00:51 02/06/24 00:53 02/06/24 00:54 Temperature Pulse Rate 70 135 H Respiratory Rate Blood Pressure 101/86 108/73 Pulse Oximetry 98 Oxygen Delivery 02/06/24 00:55 02/06/24 00:59 02/06/24 01:01 Temperature Pulse Rate 118 H 69 69 Respiratory Rate Blood Pressure 125/99 H 118/54 L 121/66 Pulse Oximetry 96 Oxygen Delivery 02/06/24 01:03 02/06/24 01:04 02/06/24 01:06 Temperature Pulse Rate 77 72 Respiratory Rate Blood Pressure 128/66 124/68 Pulse Oximetry 97 Oxygen Delivery 02/06/24 01:09 02/06/24 01:14 02/06/24 01:16 Temperature Pulse Rate 74 Respiratory Rate Blood Pressure 113/72 Pulse Oximetry 97 97 Oxygen Delivery 02/06/24 01:19 02/06/24 01:24 02/06/24 01:29 Temperature Pulse Rate Respiratory Rate Blood Pressure Pulse Oximetry 98 97 98 Oxygen Delivery 02/06/24 01:31 02/06/24 01:34 02/06/24 01:39 Temperature Pulse Rate 86 Respiratory Rate Blood Pressure 120/72 Pulse Oximetry 98 98 Oxygen Delivery 02/06/24 01:44 02/06/24 01:47 02/06/24 01:49 Temperature Pulse Rate 69 Respiratory Rate Blood Pressure 117/62 Pulse Oximetry 98 98 Oxygen Delivery 02/06/24 01:54 02/06/24 01:59 02/06/24 02:01 Temperature Pulse Rate 63 Respiratory Rate Blood Pressure 105/58 L Pulse Oximetry 98 98 Oxygen Delivery 02/06/24 02:04 02/06/24 02:09 02/06/24 02:14 Temperature Pulse Rate Respiratory Rate Blood Pressure Pulse Oximetry 98 98 100 Oxygen Delivery 02/06/24 02:15 02/06/24 02:19 02/06/24 02:20 Temperature Pulse Rate 69 Respiratory Rate Blood Pressure 118/78 Pulse Oximetry 99 100 Oxygen Delivery 02/06/24 02:25 02/06/24 02:30 02/06/24 02:31 Temperature Pulse Rate 101 H Respiratory Rate Blood Pressure 131/61 Pulse Oximetry 100 100 100 Oxygen Delivery 02/06/24 02:36 02/06/24 02:41 02/06/24 02:46 Temperature Pulse Rate Respiratory Rate Blood Pressure Pulse Oximetry 100 100 100 Oxygen Delivery 02/06/24 02:47 02/06/24 02:52 02/06/24 02:53 Temperature Pulse Rate Respiratory Rate Blood Pressure Pulse Oximetry 98 100 98 Oxygen Delivery 02/06/24 02:55 02/06/24 03:00 02/06/24 03:01 Temperature Pulse Rate 67 Respiratory Rate Blood Pressure 118/76 Pulse Oximetry 100 100 Oxygen Delivery 02/06/24 03:12 02/06/24 03:16 02/06/24 03:17 Temperature Pulse Rate 52 L Respiratory Rate Blood Pressure 118/85 Pulse Oximetry 100 100 Oxygen Delivery 02/06/24 03:22 02/06/24 03:27 02/06/24 03:31 Temperature Pulse Rate 55 L Respiratory Rate Blood Pressure 112/71 Pulse Oximetry 100 100 Oxygen Delivery 02/06/24 03:32 02/06/24 03:35 02/06/24 03:40 Temperature Pulse Rate Respiratory Rate Blood Pressure Pulse Oximetry 100 100 100 Oxygen Delivery 02/06/24 03:45 02/06/24 03:48 02/06/24 03:53 Temperature Pulse Rate 61 Respiratory Rate Blood Pressure 115/78 Pulse Oximetry 100 99 99 Oxygen Delivery 02/06/24 03:55 02/06/24 04:00 02/06/24 04:02 Temperature Pulse Rate 62 Respiratory Rate Blood Pressure 107/83 Pulse Oximetry 100 99 Oxygen Delivery 02/06/24 04:05 02/06/24 04:10 02/06/24 04:15 Temperature Pulse Rate Respiratory Rate Blood Pressure Pulse Oximetry 100 98 98 Oxygen Delivery 02/06/24 04:16 02/06/24 04:21 02/06/24 04:25 Temperature Pulse Rate 58 L Respiratory Rate Blood Pressure 114/65 Pulse Oximetry 99 98 85 L Oxygen Delivery 02/06/24 04:26 02/06/24 04:31 02/06/24 04:36 Temperature Pulse Rate 64 Respiratory Rate Blood Pressure 114/61 Pulse Oximetry 98 100 99 Oxygen Delivery 02/06/24 04:37 02/06/24 04:38 02/06/24 04:43 Temperature Pulse Rate Respiratory Rate Blood Pressure Pulse Oximetry 95 99 100 Oxygen Delivery 02/06/24 05:30 02/06/24 05:30 Temperature 98.4 F Pulse Rate 67 67 Respiratory Rate 16 16 Blood Pressure 118/75 Pulse Oximetry 99 99 Oxygen Delivery Room Air Exam Const: General: no acute distress Eyes: General: appearance normal, both eyes and all related structures Resp: Effort & Inspection: normal respiratory effort Cardio: Rate: regular rate GI: Other: Gravid no fundal tenderness no right upper quadrant pain Skin: General skin exam: no rashes or lesions noted Neuro: Cognition (Neuro): normal cognition Extrem: General: normal to inspection Psych: Mental Status: mental status grossly normal H&P: Results Labs Labs: Short CBC 02/05/24 Range/Units 23:24 WBC 13.1 H (4.5-10.0) K/mm3 Hgb 11.7 L (12.0-15.0) g/dL Hct 35.2 L (37.0-47.0) % Plt Count 235 (150-375) k/mm3 Assessment and Plan Assessment and plan (1) Active labor: Status: Acute Assessment and Plan: admit. Routine labor orders. (2) Previous section complicating : Code(s): O34.219 - Maternal care for unspecified type scar from previous delivery Status: Acute Assessment and Plan: She wants to proceed with trial of labor.
--- NOTE | 2024-02-06 07:46 | PM.OBPRVD ---
OB - Vaginal Delivery Note Procedure Delivery date: 02/06/24 Events: Previous Delivery Induction method: None Delivery monitor: External FHT Route of delivery: Episiotomy description: None Quantitative Blood Loss (ml): 150 Anesthesia type: Epidural Disposition: Floor Complications: No immediate complications Narrative: She was admitted in active labor. She had epidural placed soon after delivery. She after epidural placed she was 6 cm and soon dilated to complete. She then had assisted rupture of membranes with clear fluid. She then had a contraction and delivered the infant. She had a vaginal delivery of a male over intact perineum. Infant's nose and mouth were suctioned with the bulb at the perineum. was vigorously crying and placed on maternal abdomen. Delayed cord clamping for a minute. Cord was then doubly clamped and cut. Cord gases and cord blood was obtained. Pitocin started. Placenta delivered spontaneously and intact. Patient tolerated procedure well. Baby Date of : 02/06/24 Time of : 02:31 Gestational Age by Date: 39 Infant gender: Male Weight (pounds): 7 Weight (ounces): 5 presentation: vertex position: Left Occiput Anterior Placenta delivery description: Spontaneous Cord Vessel Description: 3 Vessels, Clamped/Cut and Delayed Cord Clamping score one minute: 8 score five minutes: 9
--- NOTE | 2024-02-06 08:55 | PC.NURSE ---
Primary RN obtained a blood glucose and requested assistance getting baby to breast. He was cold and needed to be under the infant warmer. Mom is worried because he hasn't eaten in three hours. He gives a few wide gapes when skin to skin but won't latch to the breast or suck. Assured mom that his blood sugar was good and that she can keep him skin to skin and observe for feeding cues. We will try again within a half hour. Reported to primary RN. [id number]- Went back to room to see if infant woke to feed. Mom states that he latched and suckled for a minute or two and then went back to sleep. Assured her again that since his blood sugar was good, we can allow him a little more time to wake up. Reported to primary RN.
[2024-02-06] MEDS: IBUPROFEN 600 MG TABLET PO (16:27)
--- NOTE | 2024-02-06 16:45 | PC.NURSE ---
Went to patient room to give her the admission packet. She was in a cradle hold. Baby was a little shallow and we tried to adjust but he came unlatched. We worked to latch again but mom is very relaxed and tends to let him be shallow. She says her nipples are sore but she believes it is just the normal adjustment for her. She also has her own breast pump in the room. Reported to primary RN that patient was feeding again at this time.
[2024-02-07] MEDS: IBUPROFEN 600 MG TABLET PO ×2 (05:04→15:45)
[2024-02-07 05:20] LABS: Hematocrit 32.8 % (37.0-47.0); Hemoglobin 10.5 g/dL (12.0-15.0)
[2024-02-07 08:00] VITALS: BP 118/72; PULSE 67; RESP 16; TEMP 36.3; O2SAT 100
--- NOTE | 2024-02-07 10:27 | PC.NURSE ---
Mother verbalizes she is able to independently latch with appropriate positioning and alignment. She denies any nipple discomfort and is responsively . is currently meeting outcomes for weight, output, jaundice, blood sugar and feeding frequencies of 8-12 times in 24 hours. Mother had brought her own breast pump that she used x1 this morning, per mother she has a good fit and RN gave instructions given on cleaning, care, usage, that there should be no pain, pumping schedule for milk production, collection, and storage of human milk. Parents are encouraged to record the pumping schedule on the feeding sheet.?Mother voiced understanding of the education shared along with mom/baby guide and the pump measurement, flange fit handout for additional resource information. Mother declines any additional assistance or education at this time. Mother is encouraged to call for assistance if her doesn?t latch, pain with latching, questions or concerns. Mother voiced understanding of information shared along with the mom/baby guide for an additional resource. Reported to the Primary RN.
[2024-02-08 09:27] VITALS: BP 124/76; PULSE 99; RESP 18; TEMP 26.6
== END 2024-02-07 17:14 | disposition home or self-care (01) | DRG 807 ==
LOC: ANHLDR 23:07 → ANHOB2 02-06 05:25
PROVIDERS: Admitting Provider Obstetrics & Gynecology; PCP Family Medicine; Visit Provider Obstetrics & Gynecology
DX: O62.3 Precipitate labor (principal); Z37.0 Single live birth; Z3A.39 39 weeks gestation of pregnancy; O34.211 Maternal care for low transverse scar from previous cesarean delivery
CPT/HCPCS: 36415; 85014; 85018; 85025; 86592; 86703; 86850; 86900; 86901; A9270; G0432; J2590; J2795; J7120